=== PATIENT | female | born 1990 | race Caucasian/White ===

== ENCOUNTER 2018-09-16 19:10 | Emergency (ER) | payer MEDICAID ==
[~2018-09-16] VITALS: Ht 154.9 cm; Wt 97.7 kg
[2018-09-16 19:23] VITALS: BP 151/86
== END 2018-09-16 19:37 | disposition home or self-care (01) ==
LOC: ER 19:11
DX: K13.79 Other lesions of oral mucosa (principal); K14.6 Glossodynia; G89.29 Other chronic pain; Z87.891 Personal history of nicotine dependence
CPT/HCPCS: 99281

== ENCOUNTER 2020-07-10 17:47 | Emergency (ER) | payer MEDICAID ==
[~2020-07-10] VITALS: Ht 154.9 cm; Wt 100.9 kg
[2020-07-10] MEDS ORDERED: ondansetron/PF 4mg/2ml inj IV ONE (18:10)
[2020-07-10] MEDS ORDERED: normal saline 1000ML IV soln IVB ONE (18:10)
[2020-07-10 18:22] LABS: BASOPHILS % (AUTO) 0.1 % (0-1); EOSINOPHILS % (AUTO) 0 % (0-6); HEMATOCRIT 38.3 % (35.0-45.0); HEMOGLOBIN 13.1 g/dl (12.0-16.0); LYMPHOCYTES # (AUTO) 1.4 X10'3 (1.1-4.8); LYMPHOCYTES % (AUTO) 8.7 % (21-51); MEAN CORPUSCULAR HEMOGLOBIN 30.4 PG (27.0-31.0); MEAN CORPUSCULAR HGB CONC 34.3 g/dL (33.0-36.5); MEAN CORPUSCULAR VOLUME 88.6 FL (78-98); MEAN PLATELET VOLUME 8.2 FL (7.4-10.4); MONOCYTES # (AUTO) 0.3 X10'3 (0-0.9); MONOCYTES % (AUTO) 1.9 % (2-12); NEUTROPHILS # (AUTO) 14.6 X10'3 (1.8-7.7); NEUTROPHILS % (AUTO) 89.3 % (42-75); PLATELET COUNT 268 X10'3 (140-440); RED BLOOD COUNT 4.33 X10'6 (4.20-5.60); RED CELL DISTRIBUTION WIDTH 13.1 % (11.5-14.5); WHITE BLOOD COUNT 16.3 X10'3 (4.5-11.0)
[2020-07-10 18:44] LABS: ALANINE AMINOTRANSFERASE 46 U/L (12-78); ALBUMIN 3.7 G/DL (3.4-5.0); ALBUMIN/GLOBULIN RATIO 0.9 (1.1-1.5); ALKALINE PHOSPHATASE 68 IU/L (46-116); ANION GAP 14 (8-16); ASPARTATE AMINO TRANSFERASE 16 U/L (10-37); BILIRUBIN,TOTAL 0.5 MG/DL (0.1-1.0); BLOOD UREA NITROGEN 5 MG/DL (7-18); BUN/CREATININE RATIO 9.1 (6.6-38.0); CALCIUM 9.4 MG/DL (8.5-10.1); CHLORIDE 103 MMOL/L (99-107); CREATININE 0.55 MG/DL (0.40-0.90); GLUCOSE 118 MG/DL (70-104); LIPASE 97 U/L (73-393); POTASSIUM 3.4 MMOL/L (3.5-5.1); SODIUM 140 MMOL/L (135-145); TOTAL CARBON DIOXIDE 22.7 MMOL/L (24-32); eGFR > 90 ML/MIN
[2020-07-10] MEDS ORDERED: proCHLORperazine 10 MG/2 ml inj IV ONE (19:25)
[2020-07-10 20:50] LABS: CLARITY,URINE CLEAR (Clear); COLOR,URINE YELLOW (Yellow); GLUCOSE, URINE NEGATIVE (Neg); KETONES,URINE >=80 mg/dl (Neg); LEUKOCYTE ESTERASE ,URINE NEGATIVE (Neg); NITRITES, URINE NEGATIVE (Neg); OCCULT BLOOD,URINE NEGATIVE (Neg); PROTEIN,URINE 100 mg/dl (Neg); UROBILINOGEN,URINE 0.2 E.U/dL (0.2-1.0)
[2020-07-10 20:51] LABS: UA COLLECTION TYPE CLN CATCH MIDSTREAM
[2020-07-10 20:59] LABS: BACTERIA,URINE FEW /HPF (Neg); RBC,URINE NONE SEEN /HPF (0-2); SQUAMOUS EPITHELIAL CELL,UR MODERATE /LPF (FEW); WBC,URINE 0-4 /HPF (0-4)
[2020-07-10] MEDS ORDERED: ONDA4TAB12 PO (21:08)
[2020-07-10 21:23] VITALS: BP 138/93
== END 2020-07-10 21:24 | disposition home or self-care (01) ==
LOC: ER 17:48
DX: O21.9 Vomiting of pregnancy, unspecified (principal); E86.0 Dehydration; O26.892 Other specified pregnancy related conditions, second trimester; G89.29 Other chronic pain; M54.9 Dorsalgia, unspecified; Z3A.24 24 weeks gestation of pregnancy
CPT/HCPCS: 36415; 80053; 81001; 83690; 85025; 96361; 96374; 96375; 99285; J0780; J2405; J7030

== ENCOUNTER 2021-10-07 16:46 | Emergency (ER) | payer MEDICAID ==
[~2021-10-07] VITALS: Ht 154.9 cm; Wt 104.5 kg
[~2021-10-07 16:46] MED LIST: ONDA4TAB12 PO
[2021-10-07 17:07] VITALS: BP 115/69
[2021-10-07] MEDS ORDERED: HYDR-3965 PO (18:09)
[2021-10-07] MEDS ORDERED: HYDROcodone/acetaminophen 5mg/325mg tablet PO ONE (18:10)
== END 2021-10-07 18:36 | disposition home or self-care (01) ==
LOC: ER 16:47
DX: S93.402A Sprain of unspecified ligament of left ankle, initial encounter (principal); Z87.891 Personal history of nicotine dependence; W18.40XA Slipping, tripping and stumbling without falling, unspecified, initial encounter; Y93.89 Activity, other specified; Y92.89 Other specified places as the place of occurrence of the external cause; Y99.8 Other external cause status
CPT/HCPCS: 29540; 73610; 99284; L1930

== ENCOUNTER 2022-02-13 11:11 | Emergency (ER) | payer MEDICAID ==
[~2022-02-13] VITALS: Ht 154.9 cm; Wt 111.0 kg
[2022-02-13 11:29] VITALS: BP 148/68
[2022-02-13] MEDS ORDERED: ketorolac trometh inj. 60 MG/2 ML VIAL IM ONE (12:20)
[2022-02-13] MEDS ORDERED: HYDROcodone/acetaminophen 5mg/325mg tablet PO ONE (12:20)
== END 2022-02-13 13:06 | disposition home or self-care (01) ==
LOC: ER 11:11
DX: S43.52XA Sprain of left acromioclavicular joint, initial encounter (principal); G89.29 Other chronic pain; Z98.890 Other specified postprocedural states; Z88.6 Allergy status to analgesic agent; Z79.899 Other long term (current) drug therapy; W22.8XXA Striking against or struck by other objects, initial encounter; Y93.89 Activity, other specified; Y92.89 Other specified places as the place of occurrence of the external cause; Y99.8 Other external cause status
CPT/HCPCS: 73030; 96372; 99283; J1885; A4565